=== PATIENT | male | born 1970 | race Caucasian/White ===

== ENCOUNTER 2019-06-24 08:05 | Outpatient (CLI) | payer SELFPAY ==
--- NOTE | 2019-06-24 08:22 | CT_ITS ---
WS: [id number] CT NECK TECHNIQUE: Contrast-enhanced CT of the neck with coronal and sagittal reformatted images. CLINICAL INFORMATION: ENLARGED LYMPH NODES COMPARISON: None. DLP: 1674.[address] scans at [facility] use at least one of these dose optimization techniques: automat ed exposure control; mA and/or kV adjustment per patient size (includes targeted exams where dose is matched to clinical indication); or iterative reconstruction. FINDINGS: BB marker in the area of concern left neck. In the area of concern, normal underlying sternocleidomas toid. No evidence of subcutaneous mass or lesion in this location. Parotid glands are normal. Normal submandibular glands. No cervical lymphadenopathy. Normal thyroid gland. Normal posterior nasopharynx . No evidence of supraglottic or glottic mass. Normal epiglottis. Lung apices are normal. Paranasal sinuses and mastoid air cells are well aerated. Partially visualize d intracranial contents unremarkable. No cervical lymphadenopathy. CT/CT neck w con* [id number] IMPRESSION: 1. No evidence of supraglottic or glottic mass. 2. No cervical lymphadenopathy. 3. Salivary glands are normal. 4. No evidence of subcutaneous mass or lesion in the area of concern left uppe r neck. Normal underlying sternocleidomastoid.
[2019-06-24] MEDS: iohexol 300 mg/mL 100 mL Btl IV (09:06)
== END 2019-06-24 08:06 | disposition home or self-care (01) ==
LOC: RADWPI 08:15
PROVIDERS: Family Provider Internal Medicine; Visit Provider Specialist
DX: R22.1 Localized swelling, mass and lump, neck (principal)
CPT/HCPCS: 70491; Q9967